=== PATIENT | female | born 1990 ===

== ENCOUNTER 2018-07-03 19:08 | Emergency (ER) | payer SELFPAY ==
[2018-07-03 19:17] VITALS: BP 128/80; PULSE 100; RESP 18; TEMP 98; O2SAT 100
--- NOTE | 2018-07-03 19:38 | ED PDOC ---
Syncope/Near Syncope/Dizziness Time Seen by Provider: 07/03/18 19:24 Chief Complaint (Nursing): Dizziness/Lightheaded Chief Complaint (Provider): Chronic Weakness History Per: Patient History/Exam Limitations: no limitations Onset/Duration Of Symptoms: Days (>365 days) Current Symptoms Are (Timing): Still Present Current Symptoms: tired all of the time Seizure Or Post-ictal Symptoms: None Possible Causative Factor(s): Other (pt is dx with alpha thallesemia ) Severity: Mild Past Medical History Reviewed: Historical Data, Nursing Documentation, Vital Signs Vital Signs: Last Vital Signs Temp 98 F 07/03/18 19:14 Pulse 100 H 07/03/18 19:14 Resp 18 07/03/18 19:14 BP 128/80 07/03/18 19:14 Pulse Ox 100 07/03/18 19:14 - Medical History PMH: Anemia Denies: HIV, Chronic Kidney Disease Other PMH: alpha thallesemia - Surgical History Surgical History: - Family History Family History: States: Unknown Family Hx - Home Medications Home Medications: Ambulatory Orders Medication Instructions Recorded Folic Acid 1 mg PO DAILY 05/29/17 - Allergies Allergies/Adverse Reactions: Allergies Allergy/AdvReac Type Severity Reaction Status Date / Time fruits Allergy RASH Uncoded 05/27/17 18:25 Review of Systems ROS Statement: Except As Marked, All Systems Reviewed And Found Negative Constitutional: Positive for: Weakness Cardiovascular: Negative for: Chest Pain Respiratory: Negative for: Cough, Shortness of Breath Gastrointestinal: Negative for: Nausea Neurological: Positive for: Weakness. Negative for: Incoordination, Change in Speech, Confusion, Seizures, Headache, Dizziness Physical Exam - Reviewed Nursing Documentation Reviewed: Yes Vital Signs Reviewed: Yes - Physical Exam Appears: Positive for: Well, Non-toxic, No Acute Distress. Negative for: Uncomfortable Head Exam: Positive for: ATRAUMATIC, NORMAL INSPECTION Skin: Positive for: Normal Color, Warm, Dry. Negative for: Diaphoresis, Pallor, Rash Eye Exam: Positive for: Normal appearance, EOMI, PERRL. Negative for: Nystagmus, Periorbital swelling, Periorbital tenderness ENT: Positive for: Normal ENT Inspection Neck: Positive for: Normal, Painless ROM, Supple. Negative for: Decreased ROM Cardiovascular/Chest: Positive for: Regular Rate, Rhythm, Chest Non Tender. Negative for: Murmur, Bradycardia, Tachycardia Respiratory: Positive for: Normal Breath Sounds. Negative for: Decreased Breath Sounds, Crackles, Rales, Rhonchi, Stridor, Wheezing, Respiratory Distress Pulses-Carotid (L): 2+ Pulses-Carotid (R): 2+ Pulses-Radial (L): 2+ Pulses-Radial (R): 2+ Gastrointestinal/Abdominal: Positive for: Normal Exam, Bowel Sounds, Soft. Negative for: Tenderness, Distended, Guarding - Laboratory Results Result Diagrams: 07/03/18 19:59 07/03/18 19:59 - ECG O2 Sat by Pulse Oximetry: 100 Medical Decision Making Medical Decision Making: CBC - Hg of 8.8 is at baseline for this patient CMP - K of 3.3 EKG - see notes in treatment Influenza - negative Pt tx with K-dur 40 in ED referred to hematology (pt has none in area and is uninsured) Disposition - Clinical Impression Clinical Impression: Thalassanemia, Hypokalemia, Anemia - Patient ED Disposition Is Patient to be Admitted: No Doctor Will See Patient In The: Office Counseled Patient/Family Regarding: Studies Performed, Diagnosis, Need For Followup - Disposition Referrals: Ricardo Galarza MD [Staff Provider] - Juan Galarza MD [Staff Provider] - [facility] [Outside] [facility] [Outside] Disposition: Routine/Home Disposition Time: 21:48 Condition: STABLE Instructions: Hypokalemia, Hypokalemia (DC), High Potassium Diet, Beta Thalassemia Major Forms: [employer] ([place])
[2018-07-03] MEDS ORDERED: Sodium Chloride 0.9% 1,000 ML IV SCH (19:45)
[2018-07-03 20:44] LABS: BASO # 0.1 K/uL (0.0-0.2); BASO % 1.1 % (0.0-2.0); EOS # 0.1 K/uL (0.0-0.7); EOS % 1.4 % (0.0-4.0); HEMOGLOBIN 8.8 g/dL (12.0-16.0); LYMPH # 2.3 K/uL (1.0-4.3); LYMPH % 36.1 % (20.0-40.0); MEAN CORPUSCULAR HEMOGLOBIN 19.1 pg (27.0-31.0); MEAN CORPUSCULAR HGB CONC 30.6 g/dL (33.0-37.0); MEAN PLATELET VOLUME 9.7 fl (7.2-11.7); MONO # 0.4 K/uL (0.0-0.8); MONO % 5.9 % (0.0-10.0); NEUT # 3.6 K/uL (1.8-7.0); NEUT % 55.5 % (50.0-75.0); RBC 4.64 Mil/uL (3.80-5.20); WHITE BLOOD COUNT 6.5 K/uL (4.8-10.8)
[2018-07-03 21:01] LABS: ALB/GLOB RATIO 1.2 (1.0-2.1); ALBUMIN 4.1 g/dL (3.5-5.0); ALT/SGPT 33 U/L (9-52); AST/SGOT 25 U/L (14-36); BLOOD UREA NITROGEN 10 mg/dl (7-17); CALCIUM 9.4 mg/dL (8.4-10.2); GFR NON-AFRICAN AMERICAN > 60
[2018-07-03 21:06] LABS: SQUAMOUS EPITHIAL 5 /hpf (0-5); URINE BACTERIA RARE (<OCC); URINE BILIRUBIN NEGATIVE (NEGATIVE); URINE BLOOD NEGATIVE (NEGATIVE); URINE CLARITY SLIGHTY-CLOUDY (Clear); URINE COLOR YELLOW (YELLOW); URINE GLUCOSE (UA) NEG (NEGATIVE); URINE LEUKOCYTE ESTERASE NEG Leu/uL (Negative); URINE PROTEIN 30 mg/dL (NEGATIVE)
[2018-07-03] MEDS ORDERED: Potassium Chloride 20 mEq ER Tab PO STA (21:36)
[2018-07-03] MEDS ORDERED: Potassium Chloride 20 mEq ER Tab PO ONE (21:48)
[2018-07-03 22:21] LABS: MEAN CELL VOLUME 62.2 fl (81.0-99.0)
--- NOTE | 2018-07-04 09:18 | CARD ---
APPROVED REPORT Date of service: 07/03/2018 EKG Measurement Heart [id number] ID [id number] <Conclusion> Normal sinus rhythm Low voltage QRS Borderline ECG
== END 2018-07-03 22:42 | disposition home or self-care (01) ==
LOC: H.ER 19:08
DX: D56.9 Thalassemia, unspecified (principal); E87.6 Hypokalemia
CPT/HCPCS: 80053; 81003; 81025; 84484; 85025; 87804; 93005; 99284; J7030